=== PATIENT | female | born 1935 | race African-American/Black ===

== ENCOUNTER 2018-03-20 14:44 | Inpatient (IN) | payer MEDICARE ==
[~2018-03-20] VITALS: Ht 149.9 cm; Wt 70.8 kg
[2018-03-20] MEDS ORDERED: Morphine Sulfate 4mg/ml Inj IVP ONE (15:00)
[2018-03-20] MEDS ORDERED: METOPROLOL SUC100 MG ORAL ×2 (15:07→18:07)
[2018-03-20] MEDS ORDERED: RESTORIL15 MG ORAL ×2 (15:07→18:07)
[2018-03-20] MEDS ORDERED: NORCO 5-325 TA1 EACH ORAL (15:07)
[2018-03-20] MEDS ORDERED: AMLODIPINE-VAL1 EACH PO (15:07)
[2018-03-20] MEDS ORDERED: NITROSTAT0.4 M1 SL ×2 (15:07→18:07)
[2018-03-20] MEDS ORDERED: DEXILANT60 MG ORAL ×2 (15:07→18:07)
[2018-03-20] MEDS ORDERED: ZOFRAN4 M3 ORAL ×2 (15:07→18:07)
[2018-03-20] MEDS ORDERED: CATAPRES0.3 MG ORAL (15:07)
--- NOTE | 2018-03-20 15:28 | Emergency Room Report ---
History of Present Illness General Chief Complaint: Abdominal Pain Source: Patient, Medical Record Present Illness HPI Patient was discharged from [facility] after hospitalization. She was given information about pancreatitis. She's complaining about abdominal pain at this time. She states it's suprapubic area. She has vomiting associated with that. She also has an dysuria. She moved her bowels this morning and was normal. She denies vomiting any blood. She states the pain is severe and intermittent. Aching pressure and grabs her. They left an IV in at discharge. She's not sure why. Review the records from [facility] refill she had endoscopy and colonoscopy. Discharge paperwork reveal the GI specialist felt that she had ischemic colitis and was told to take nitroglycerin when she had abdominal pain. Is no mention of pancreatitis. No chest pain, cough, sore throat, rashes, headache, depression. Allergies: Coded Allergies: ASPIRIN (Unverified Allergy, Unknown, 03/20/18) PENICILLINS (Unverified Allergy, Unknown, 03/20/18) TETRACYCLINES (Unverified Allergy, Unknown, 03/20/18) Patient History Past Medical History: see triage record Past Surgical History: other - erika, gastric bypass Social History: Denies: smoking, alcohol use, drug use Social History Narrative from home Last Menstrual Period: na Reviewed Nursing Documentation: PMH: Agreed; PSxH: Agreed Nursing Documentation-PMH Past Medical History: No History, Except For Hx Cardiac Problems: Yes Hx Hypertension: Yes Hx Gastrointestinal Problems: Yes - pancreatitis Review of Systems All Other Systems: negative except mentioned in HPI Physical Exam Vital Signs Date Time Temp Pulse Resp B/P (MAP) Pulse Ox O2 Delivery O2 Flow Rate FiO2 03/20/18 14:37 98.3 90 18 145/82 98 Room Air 98.2 Sp02 EP Interpretation: reviewed, normal General Appearance: well appearing, no apparent distress, GCS 15 Head: normocephalic Eyes: bilateral eye normal inspection, bilateral eye conjunctivae pale ENT: moist mucus membranes Neck: supple Respiratory: lungs clear, normal breath sounds Cardiovascular #1: regular rate, rhythm Cardiovascular #2: 2+ radial (R) Gastrointestinal: normal inspection, normal bowel sounds, no mass, non- distended, no rebound, guarding, tenderness - Suprapubic, overweight Genitourinary: no CVA tenderness Musculoskeletal: back normal, gait/station normal, normal range of motion Neurologic: alert, oriented x3, grossly normal Psychiatric: mood/affect normal Skin: normal inspection, warm/dry Medical Decision Making Diagnostic Impression: Primary Impression: Abdominal pain Qualified Codes: R10.13 - Epigastric pain Additional Impressions: Anemia Qualified Codes: D50.9 - Iron deficiency anemia, unspecified Elevated lipase ER Course The patient presents with abdominal pain post discharged from [facility]. Differential includes UTI, pancreatitis, gastroenteritis, diverticulitis amongst others. She needs reevaluation with EKG, abdominal film and chest x- ray and labs. We'll be treating her with IV hydration and analgesia here. Review of recent admission records reveal upper and lower endoscopy. Final consideration was of ischemic bowel and nitroglycerine was suggested. EKG without injury. Abd with multiple surgical clips. CXR inc cor. Labs with significant anemia, elevated lipase (minimally). Patient insisting on Dilaudid instead of morphine. When I mentioned the severe anemia, she states she refuses transfusion as she is [employer]. Patient improved with treatment. Needs observation and further evaluation of abd pain and anemia. Admit med Dr. Espitia. Laboratory Tests Test 03/20/18 18:25 03/21/18 07:15 03/21/18 12:30 White Blood Count 3.9 K/UL (4.8-10.8) L Red Blood Count 3.03 M/UL (4.20-5.40) L Hemoglobin 7.9 G/DL (12.0-16.0) L Hematocrit 25.5 % (37.0-47.0) L Mean Corpuscular Volume 84 FL (80-99) Mean Corpuscular Hemoglobin 26.0 PG (27.0-31.0) L Mean Corpuscular Hemoglobin Concent 30.9 G/DL (32.0-36.0) L Red Cell Distribution Width 18.9 % (11.6-14.8) H Platelet Count 181 K/UL (150-450) Mean Platelet Volume 5.5 FL (6.5-10.1) L Neutrophils (%) (Auto) % (45.0-75.0) Lymphocytes (%) (Auto) % (20.0-45.0) Monocytes (%) (Auto) % (1.0-10.0) Eosinophils (%) (Auto) % (0.0-3.0) Basophils (%) (Auto) % (0.0-2.0) Differential Total Cells Counted 100 Neutrophils % (Manual) 50 % (45-75) Lymphocytes % (Manual) 38 % (20-45) Monocytes % (Manual) 10 % (1-10) Eosinophils % (Manual) 2 % (0-3) Basophils % (Manual) 0 % (0-2) Band Neutrophils 0 % (0-8) Platelet Estimate Adequate Platelet Morphology Normal Hypochromasia 1+ Prothrombin Time 10.7 SEC (9.30-11.50) Prothrombin Time INR 1.0 (0.9-1.1) PTT 27 SEC (23-33) Sodium Level 141 MMOL/L (136-145) Potassium Level 3.7 MMOL/L (3.5-5.1) Chloride Level 105 MMOL/L (98-107) Carbon Dioxide Level 26 MMOL/L (21-32) Anion Gap 10 mmol/L (5-15) Blood Urea Nitrogen 15 mg/dL (7-18) Creatinine 0.9 MG/DL (0.55-1.30) Estimate Glomerular Filtration Rate mL/min (>60) Glucose Level 98 MG/DL (74-106) Calcium Level 8.6 MG/DL (8.5-10.1) Total Bilirubin 0.4 MG/DL (0.2-1.0) Aspartate Amino Transferase (AST) 21 U/L (15-37) Alanine Aminotransferase (ALT) 21 U/L (12-78) Alkaline Phosphatase 140 U/L (46-116) H Troponin I 0.004 ng/mL (0.000-0.056) Total Protein 7.0 G/DL (6.4-8.2) Albumin 3.4 G/DL (3.4-5.0) Globulin 3.6 g/dL Albumin/Globulin Ratio 0.9 (1.0-2.7) L Lipase 398 U/L (73-393) H 204 U/L (73-393) Iron Level 50 ug/dL (50-175) Total Iron Binding Capacity 336 ug/dL (250-450) Percent Iron Saturation 15 % (15-50) Unsaturated Iron Binding 286 ug/dL (112-346) Urine Color Yellow Urine Appearance Clear Urine pH 6 (4.5-8.0) Urine Specific [place] 1.010 (1.005-1.035) Urine Protein Negative (NEGATIVE) Urine Glucose (UA) Negative (NEGATIVE) Urine Ketones Negative (NEGATIVE) Urine Occult Blood 1+ (NEGATIVE) H Urine Nitrite Negative (NEGATIVE) Urine Bilirubin Negative (NEGATIVE) Urine Urobilinogen Normal MG/DL (0.0-1.0) Urine Leukocyte Esterase 2+ (NEGATIVE) H Urine RBC 2-4 /HPF (0 - 2) H Urine WBC 2-4 /HPF (0 - 2) Urine Squamous Epithelial Cells Occasional /LPF Urine Bacteria Occasional /HPF (NONE) EKG Diagnostic Results Rate: normal Rhythm: NSR ST Segments: no acute changes Rhythm Strip Diag. Results EP Interpretation: yes Rhythm: NSR, no PVC's, no ectopy Chest X-Ray Diagnostic Results Chest X-Ray Diagnostic Results : Chest X-Ray Ordered: Yes # of Views/Limited/Complete: 1 View Indication: Other EP Interpretation: Yes Interpretation: no consolidation, no effusion, no pneumothorax Impression: No acute disease Electronically Signed by: Electronically signed by Malik Zheng MD Other X-Ray Diagnostic Results Other X-Ray Diagnostic Results : X-Ray ordered: Abdomen # of Views/Limited Vs Complete: 1 View Indication: Pain EP Interpretation: Yes Interpretation: nonspecific bowel gas, no sbo, other - Multiple surgical clips Impression: Other Electronically Signed by: Electronically signed by Malik Zheng MD Status: improved Disposition: ADMITTED INPATIENT Condition: Serious Malik Zheng M.D. Mar 20, 2018 15:28
[2018-03-20 16:17] VITALS: BP 113/67
[2018-03-20] MEDS ORDERED: Hydromorphone 0.5mg/0.5ml inj IVP ONE (16:30)
[2018-03-20] MEDS ORDERED: Hydromorphone 0.5mg/0.5ml inj ONE (17:21)
[2018-03-20] MEDS ORDERED: CLONIDINE HCL0.2 MG PO (18:07)
[2018-03-20] MEDS ORDERED: AMLOD-VALSA-HC1 EACH PO (18:07)
[2018-03-20] MEDS ORDERED: NORCO 10-325 T1 EACH ORAL (18:07)
[2018-03-20 18:43] LABS: HEMATOCRIT 25.5 % (37.0-47.0); HEMOGLOBIN 7.9 G/DL (12.0-16.0); MEAN CORPUSCULAR VOLUME 84 FL (80-99); PLATELET COUNT 181 K/UL (150-450); RED BLOOD COUNT 3.03 M/UL (4.20-5.40); RED CELL DISTRIBUTION WIDTH 18.9 % (11.6-14.8); WHITE BLOOD COUNT 3.9 K/UL (4.8-10.8)
[2018-03-20 18:52] LABS: ANION GAP 10 mmol/L (5-15); BLOOD UREA NITROGEN 15 mg/dL (7-18); CALCIUM 8.6 MG/DL (8.5-10.1); CARBON DIOXIDE 26 MMOL/L (21-32); CHLORIDE 105 MMOL/L (98-107); CREATININE 0.9 MG/DL (0.55-1.30); POTASSIUM 3.7 MMOL/L (3.5-5.1); SODIUM 141 MMOL/L (136-145)
[2018-03-20 18:56] LABS: ALANINE AMINOTRANSFERASE 21 U/L (12-78); ALBUMIN 3.4 G/DL (3.4-5.0); ALBUMIN/GLOBULIN RATIO 0.9 (1.0-2.7); ALKALINE PHOSPHATASE 140 U/L (46-116); ASPARTATE AMINO TRANSFERASE 21 U/L (15-37); BILIRUBIN,TOTAL 0.4 MG/DL (0.2-1.0)
[2018-03-20 19:20] VITALS: BP 122/59
[2018-03-20 20:43] VITALS: BP 138/79
[2018-03-20] MEDS ORDERED: Nitroglycerin Subl 0.4mg tab SL PRN (20:45)
[2018-03-20] MEDS ORDERED: HYDROcodone/Acetamin 10/325 tab ORAL PRN (20:45)
[2018-03-20] MEDS ORDERED: Hydromorphone 0.5mg/0.5ml inj IVP PRN (20:45)
[2018-03-20] MEDS: Hydromorphone 0.5mg/0.5ml inj IVP PRN (21:29)
[2018-03-20] MEDS: D5NS 1,000 ML IV SCH (21:30)
[2018-03-20] MEDS ORDERED: cloNIDine 0.2mg Tab ORAL SCH (22:00)
[2018-03-20] MEDS: HYDROcodone/Acetamin 10/325 tab ORAL PRN (23:40)
[2018-03-21] VITALS (7 sets, daily range): BP systolic 70–136; BP diastolic 43–77
[2018-03-21] MEDS ORDERED: Hydromorphone 0.5mg/0.5ml inj IVP PRN (00:45)
[2018-03-21] MEDS: Hydromorphone 0.5mg/0.5ml inj IVP PRN ×5 (01:35→22:02)
[2018-03-21] MEDS ORDERED: NS 250 ML IVPB SCH (04:15)
[2018-03-21] MEDS ORDERED: Sodium Chloride 500ML 500 ML IV ONE (07:00)
[2018-03-21] MEDS: D5NS 1,000 ML IV SCH ×2 (07:55→23:40)
--- NOTE | 2018-03-21 08:20 | General Progress Note ---
Assessment/Plan Problem List: (1) Abdominal pain ICD Codes: R10.9 - Unspecified abdominal pain SNOMED: 21839179 (2) Hypotension ICD Codes: I95.9 - Hypotension, unspecified SNOMED: 97888437 (3) Shock ICD Codes: R57.9 - Shock, unspecified SNOMED: 97654992 (4) Dehydration ICD Codes: E86.0 - Dehydration SNOMED: 37700609 (5) Hypertension ICD Codes: I10 - Essential (primary) hypertension SNOMED: 84948536 Status: stable Assessment/Plan pain rx ivf await CT scan surgery and gi eval Subjective ROS Limited/Unobtainable: No Constitutional: Reports: malaise, weakness HEENT: Reports: no symptoms Cardiovascular: Reports: no symptoms Respiratory: Reports: no symptoms Gastrointestinal/Abdominal: Reports: abdominal pain Genitourinary: Reports: no symptoms Neurologic/Psychiatric: Reports: no symptoms Endocrine: Reports: no symptoms Hematologic/Lymphatic: Reports: no symptoms Allergies: Coded Allergies: ASPIRIN (Unverified Allergy, Unknown, 03/20/18) PENICILLINS (Unverified Allergy, Unknown, 03/20/18) TETRACYCLINES (Unverified Allergy, Unknown, 03/20/18) All Systems: reviewed and negative except above Subjective no events. w/o complaints except continued abd pain. no fever or chills. no sob. no nausea or vomiting. no diarrhea. Objective Last 24 Hour Vital Signs Date Time Temp Pulse Resp B/P (MAP) Pulse Ox O2 Delivery O2 Flow Rate FiO2 03/21/18 04:43 97.3 67 17 70/43 100 97.3 03/21/18 00:13 98.1 83 16 136/77 98 98.1 03/20/18 21:30 138/79 03/20/18 20:43 97.9 86 18 138/79 99 97.9 03/20/18 19:55 98.4 74 19 122/59 98 Room Air 98.4 03/20/18 19:47 98.4 03/20/18 19:20 98.4 74 19 122/59 98 Room Air 98.4 03/20/18 16:17 82 12 113/67 100 Room Air 03/20/18 14:37 98.3 90 18 145/82 98 Room Air 98.2 Intake and Output 03/20/18 03/21/18 19:00 07:00 Intake Total 1425 ml Balance 1425 ml Intake IV Total 1425 ml # Voids 2 Laboratory Tests 03/20/18 18:25: White Blood Count 3.9L, Red Blood Count 3.03L, Hemoglobin 7.9L, Hematocrit 25.5L , Mean Corpuscular Volume 84, Mean Corpuscular Hemoglobin 26.0L, Mean Corpuscular Hemoglobin Concent 30.9L, Red Cell Distribution Width 18.9H, Platelet Count 181, Mean Platelet Volume 5.5L, Neutrophils (%) (Auto) , Lymphocytes (%) (Auto) , Monocytes (%) (Auto) , Eosinophils (%) (Auto) , Basophils (%) (Auto) , Differential Total Cells Counted 100, Neutrophils % ( Manual) 50, Lymphocytes % (Manual) 38, Monocytes % (Manual) 10, Eosinophils % ( Manual) 2, Basophils % (Manual) 0, Band Neutrophils 0, Platelet Estimate Adequate, Platelet Morphology Normal, Hypochromasia 1+, Prothrombin Time 10.7, Prothromb Time International Ratio 1.0, Activated Partial Thromboplast Time 27, Sodium Level 141, Potassium Level 3.7, Chloride Level 105, Carbon Dioxide Level 26, Anion Gap 10, Blood Urea Nitrogen 15, Creatinine 0.9, Estimat Glomerular Filtration Rate , Glucose Level 98, Calcium Level 8.6, Total Bilirubin 0.4, Aspartate Amino Transf (AST/SGOT) 21, Alanine Aminotransferase (ALT/SGPT) 21, Alkaline Phosphatase 140H, Troponin I 0.004, Total Protein 7.0, Albumin 3.4, Globulin 3.6, Albumin/Globulin Ratio 0.9L, Lipase 398H 03/21/18 07:15: Iron Level [Pending], Unsaturated Iron Binding [Pending] Height (Feet): 4 Height (Inches): 11.00 Weight (Pounds): 134 General Appearance: WD/WN, alert Neck: supple Cardiovascular: normal rate Respiratory/Chest: chest wall non-tender, lungs clear, normal breath sounds Abdomen: normal bowel sounds, soft, no organomegaly, no mass, guarding, tender Edema: no edema noted Arm (L), no edema noted Arm (R), no edema noted Leg (L), no edema noted Leg (R), no edema noted Pedal (L), no edema noted Pedal (R), no edema noted Generalized Guanako Espitia MD Mar 21, 2018 08:19
--- NOTE | 2018-03-21 08:31 | History and Physical Report ---
DATE OF ADMISSION: 03/20/2018 CHIEF COMPLAINT: Abdominal pain. HISTORY OF PRESENT ILLNESS: The patient is an 82-year-old female. She has a history of hypertension. She has a questionable history of ischemic colitis. She has had several admissions for evaluation of abdominal pain most recently a week ago at an outside hospital. At that time, she underwent endoscopy, results of which are unclear to the patient. She had worsening abdominal pain and presented to the emergency room. On evaluation there, the patient's initial laboratories were unremarkable, but the pain cannot be controlled despite IV pain medications and she is now admitted for further evaluation and care. She denies any melena. She has had no bright red blood per rectum. No hematemesis. PAST MEDICAL HISTORY: Significant for history of hypertension, morbid obesity, and status post gastric bypass surgery. CURRENT MEDICATIONS: Reconciled and reviewed. ALLERGIES: Include aspirin, penicillin, and tetracycline. FAMILY HISTORY: Noncontributory. SOCIAL HISTORY: Negative for tobacco, ethanol, or drugs. The patient is [employer]. PHYSICAL EXAMINATION: VITAL SIGNS: Temperature is 98 degrees, pulse 74, respirations 19, and blood pressure 122/59. GENERAL: The patient is a well-developed female, in no apparent distress. She is awake, alert, and oriented x4. NECK: Supple. HEART: Regular rate and rhythm. LUNGS: Clear. ABDOMEN: Soft. Mildly distended. The patient has mild tenderness to palpation with some guarding. LABORATORY DATA: Labs showed white count of 4, hemoglobin 7.9, hematocrit 25.5, and platelet count 188,000. Coags normal. Sodium 141 and potassium 3.7. LFTs were unremarkable. Lipase is 398. ASSESSMENT: This is a pleasant female admitted with complaints of abdominal pain, unclear etiology. She does have a slightly elevated lipase. Her pain is much lower though. This is a pleasant female with abdominal pain, possible pancreatitis, questionable ischemic colitis, and hypertension. PLAN: 1. IV hydration. 2. Continue regular diet as tolerated. 3. Antiemetics. 4. IV pain medications. 5. GI consultation. 6. We will check her urinalysis. Guanako Espitia M.D. DR: LATRICE JOB#: [id number] CC:
[2018-03-21 08:57] LABS: % IRON SATURATION 15 % (15-50); IRON 50 ug/dL (50-175); TOTAL IRON BINDING CAPACITY 336 ug/dL (250-450)
[2018-03-21] MEDS ORDERED: Metoprolol Succinate XL 100mg tab ORAL SCH (09:00)
[2018-03-21] MEDS ORDERED: Hyzaar 12.5mg/50mg tab ORAL SCH (09:00)
[2018-03-21] MEDS: Metoprolol Succinate XL 100mg tab ORAL SCH (09:00)
--- NOTE | 2018-03-21 10:12 | General Progress Note ---
Assessment/Plan Assessment/Plan GI CONSULT Dictation to follow Patient unclear of details of illness but has had extensive GI w/u including EGD /Colon She is followed by an outside GI MD - Message left to discuss For now will hydrate and check all stool tests Thank you Monserrat Gutierrez MD Subjective Allergies: Coded Allergies: ASPIRIN (Unverified Allergy, Unknown, 03/20/18) PENICILLINS (Unverified Allergy, Unknown, 03/20/18) TETRACYCLINES (Unverified Allergy, Unknown, 03/20/18) Objective Last 24 Hour Vital Signs Date Time Temp Pulse Resp B/P (MAP) Pulse Ox O2 Delivery O2 Flow Rate FiO2 03/21/18 09:34 97.9 03/21/18 09:30 75 18 115/67 100 Room Air 03/21/18 09:00 65 97/52 03/21/18 09:00 97.9 65 17 97/52 100 Room Air 97.9 03/21/18 04:43 97.3 67 17 70/43 100 97.3 03/21/18 00:13 98.1 83 16 136/77 98 98.1 03/20/18 21:30 138/79 03/20/18 20:43 97.9 86 18 138/79 99 97.9 03/20/18 19:55 98.4 74 19 122/59 98 Room Air 98.4 03/20/18 19:47 98.4 03/20/18 19:20 98.4 74 19 122/59 98 Room Air 98.4 03/20/18 16:17 82 12 113/67 100 Room Air 03/20/18 14:37 98.3 90 18 145/82 98 Room Air 98.2 Intake and Output 03/20/18 03/21/18 19:00 07:00 Intake Total 1425 ml Balance 1425 ml Intake IV Total 1425 ml # Voids 2 Laboratory Tests 03/20/18 18:25: White Blood Count 3.9L, Red Blood Count 3.03L, Hemoglobin 7.9L, Hematocrit 25.5L , Mean Corpuscular Volume 84, Mean Corpuscular Hemoglobin 26.0L, Mean Corpuscular Hemoglobin Concent 30.9L, Red Cell Distribution Width 18.9H, Platelet Count 181, Mean Platelet Volume 5.5L, Neutrophils (%) (Auto) , Lymphocytes (%) (Auto) , Monocytes (%) (Auto) , Eosinophils (%) (Auto) , Basophils (%) (Auto) , Differential Total Cells Counted 100, Neutrophils % ( Manual) 50, Lymphocytes % (Manual) 38, Monocytes % (Manual) 10, Eosinophils % ( Manual) 2, Basophils % (Manual) 0, Band Neutrophils 0, Platelet Estimate Adequate, Platelet Morphology Normal, Hypochromasia 1+, Prothrombin Time 10.7, Prothromb Time International Ratio 1.0, Activated Partial Thromboplast Time 27, Sodium Level 141, Potassium Level 3.7, Chloride Level 105, Carbon Dioxide Level 26, Anion Gap 10, Blood Urea Nitrogen 15, Creatinine 0.9, Estimat Glomerular Filtration Rate , Glucose Level 98, Calcium Level 8.6, Total Bilirubin 0.4, Aspartate Amino Transf (AST/SGOT) 21, Alanine Aminotransferase (ALT/SGPT) 21, Alkaline Phosphatase 140H, Troponin I 0.004, Total Protein 7.0, Albumin 3.4, Globulin 3.6, Albumin/Globulin Ratio 0.9L, Lipase 398H 03/21/18 07:15: Iron Level 50, Total Iron Binding Capacity 336, Percent Iron Saturation 15, Unsaturated Iron Binding 286 Height (Feet): 4 Height (Inches): 11.00 Weight (Pounds): 134 Monserrat Gutierrez MD Mar 21, 2018 10:12
--- NOTE | 2018-03-21 12:00 | Diagnostic Imaging Report ---
Indication: Abdominal pain Technique: Supine view of the abdomen Comparison: none Findings: Rather numerous surgical clips are seen in the region of the gastroesophageal junction, epigastric region, and left lower quadrant. The bowel gas pattern is unremarkable Impression: No acute process
--- NOTE | 2018-03-21 12:01 | Diagnostic Imaging Report ---
Indication: Chest pain Technique: One view of the chest Comparison: None Findings: Lungs and pleural spaces are clear. Heart size is upper limits of normal. The aorta is tortuous Impression: No acute process
[2018-03-21 13:03] LABS: APPEARANCE,URINE CLEAR; BILIRUBIN, URINE NEGATIVE (NEGATIVE); GLUCOSE, URINE (UA) NEGATIVE (NEGATIVE); KETONES,URINE NEGATIVE (NEGATIVE); LEUKOCYTE ESTERASE ,URINE 2+ (NEGATIVE); NITRITE,URINE NEGATIVE (NEGATIVE); PH,URINE 6 (4.5-8.0); PROTEIN,URINE NEGATIVE (NEGATIVE); UROBILINOGEN,URINE NORMAL MG/DL (0.0-1.0)
[2018-03-21 13:13] LABS: COLOR,URINE YELLOW
--- NOTE | 2018-03-21 13:33 | Cardiology Report ---
APPROVED REPORT EKG Measurement Heart [id number] Normal sinus rhythm Minimal voltage criteria for LVH, may be normal variant Borderline ECG
--- NOTE | 2018-03-21 15:02 | Diagnostic Imaging Report ---
Indication: Chest and abdominal pain TECHNIQUE: Patient ingested oral contrast. IV administration nonionic contrast multiphasic spiral acquisitions obtained through the chest, abdomen, and pelvis. Multiplanar reconstructions were generated. Total dose length product 1313 mGycm. CTDIvol(s) 8, 81, 13, 16 mGy. Radiation dose was minimized using automated exposure control COMPARISON: none FINDINGS Chest: The lungs demonstrate posterior dependent atelectatic changes on the right, minimal basilar atelectasis and/or scarring on the left. There is some thickening of the superolateral aspect of the major fissure on the right No infiltrates, effusions, masses, nodules, or congestion The heart is mildly enlarged. No pericardial effusion. No mediastinal or hilar mass or adenopathy. Included portions of the thyroid are unremarkable. There is suggestion of mild wall thickening of the mid esophagus. No axillary or chest wall mass or adenopathy. The bones are unremarkable. Abdomen pelvis: The appendix is normal. No evidence of diverticulosis or diverticulitis. No small bowel distention. There is evidence of prior gastric bypass surgery. There is only limited forward transit of contrast. No free or loculated intraperitoneal air or fluid is evident. There is a tiny right inguinal hernia which contains only fat. The gallbladder is surgically absent. There is dilatation of the extrahepatic bile ducts and of the central intrahepatic bile ducts, common bile duct measuring up to 10 mm in diameter. However, no downstream obstructive lesion is demonstrated. No focal hepatic abnormality is demonstrated. The pancreas is unremarkable except for a mildly ectatic pancreatic duct. Spleen, adrenals are unremarkable. Both kidneys demonstrate subcentimeter low-attenuation lesions which are too small to characterize but most likely represent benign simple cysts. No retroperitoneal or mesenteric mass or adenopathy. No pelvic mass or adenopathy. Uterus is not evident, presumed surgically absent. There are degenerative changes of the lower lumbar spine. IMPRESSION: Mild esophageal wall thickening, could indicate esophagitis changes. Correlate with clinical findings No definite acute process otherwise There is mild cardiomegaly Minimal posterior dependent pulmonary atelectatic changes and scarring.. Evidence of prior gastric bypass surgery Evidence of prior cholecystectomy. Dilatation of the extra hepatic bile ducts and central intrahepatic ducts noted. Likely related to age and postcholecystectomy state. However, occult downstream obstructive lesion cannot be excluded, and correlation with liver function tests is recommended Bilateral subcentimeter low-attenuation renal lesions, too small to characterize, most likely benign simple cyst Other findings as noted, including degenerative spondylosis, evidence of prior hysterectomy, small fat-containing right inguinal hernia The CT scanner at [facility] is accredited by the [employer] and the scans are performed using protocols designed to limit radiation exposure to as low as reasonably achievable to attain images of sufficient resolution adequate for diagnostic evaluation.
[2018-03-21] MEDS ORDERED: D5NS 1000ml IV ONE (15:24)
--- NOTE | 2018-03-21 15:27 | Consultation ---
History of Present Illness General Date patient seen: Mar 21, 2018 Chief Complaint: Abdominal Pain Reason for Consultation: abdominal pain Present Illness HPI 82 year old pleasant female presented to ED with complaints of generalized abdominal pain. states pain intermittent and for some time now. currently pain mainly suprapubic. no current nausea or emesis. was recently discharged from outside facility and only notes diagnosis of pancreatitis? history limited as she is a poor historian. surgery called to evaluate for abdominal pain. states she is passing flatus and small bm's. on admission mild elevation in lipase. pending radiological exams. Allergies: Coded Allergies: ASPIRIN (Unverified Allergy, Unknown, 03/20/18) PENICILLINS (Unverified Allergy, Unknown, 03/20/18) TETRACYCLINES (Unverified Allergy, Unknown, 03/20/18) Medication History Scheduled Amlodipine/Valsartan (Amlodipine-Valsartan 5-160 mg), 1 EACH PO DAILY, (Reported ) Amlodipine/Valsartan/Hcthiazid (Nrnxg-Ukjkj-Qgoi 5-160-12.5 mg), 1 EACH PO DAILY , (Reported) Clonidine Hcl (Clonidine Hcl), 0.2 MG PO THREE TIMES A DAY, (Reported) Clonidine Hcl* (Catapres*), 0.3 MG ORAL Q8HR, (Reported) Dexlansoprazole (Dexilant), 60 MG ORAL DAILY, (Reported) Dexlansoprazole (Dexilant), 60 MG ORAL DAILY, (Reported) Metoprolol Succinate* (Metoprolol Succinate*), 100 MG ORAL DAILY, (Reported) Metoprolol Succinate* (Metoprolol Succinate*), 100 MG ORAL DAILY, (Reported) Scheduled PRN Hydrocodone Bit/Acetaminophen 10-325* ([place] 10-325*), 1 TAB ORAL Q6H PRN for For Pain, (Reported) Hydrocodone Bit/Acetaminophen 5-325* ([place] 5-325*), 1 TAB ORAL Q6H PRN for For Pain, (Reported) Nitroglycerin (Nitrostat), 0.4 MG SL Q5M X3 DOSES PRN for CHEST PAIN, (Reported) Nitroglycerin (Nitrostat), 0.4 MG SL Q5M X3 DOSES PRN for CHEST PAIN, (Reported) Ondansetron* (Zofran*), 4 MG ORAL Q6H PRN for Nausea & Vomiting, (Reported) Ondansetron* (Zofran*), 4 MG ORAL Q6H PRN for Nausea & Vomiting, (Reported) Temazepam* (Restoril*), 15 MG ORAL BEDTIME PRN for Insomnia, (Reported) Temazepam* (Restoril*), 15 MG ORAL BEDTIME PRN for Insomnia, (Reported) Patient History History Provided By: Patient, Medical Record, PMD Healthcare decision maker Resuscitation status Full Code Advanced Directive on File Past Medical/Surgical History Past Medical/Surgical History: (1) Abdominal pain (2) Abdominal pain (3) Dehydration (4) Hypertension (5) Hypotension (6) Shock Review of Systems All Other Systems: negative except mentioned in HPI Physical Exam General Appearance: no apparent distress Lines, tubes and drains: peripheral HEENT: mucous membranes moist Neck: normal inspection Respiratory/Chest: lungs clear, normal breath sounds, no respiratory distress, no accessory muscle use Cardiovascular/Chest: normal rate, regular rhythm Abdomen: normal bowel sounds, non tender, soft, no organomegaly, no mass, distended Extremities: non-tender, normal inspection Skin Exam: normal pigmentation Neurologic: alert, responsive Last 24 Hour Vital Signs Date Time Temp Pulse Resp B/P (MAP) Pulse Ox O2 Delivery O2 Flow Rate FiO2 03/21/18 14:34 97.7 03/21/18 14:04 97.7 03/21/18 12:00 97.7 93 18 119/71 95 Room Air 97.7 03/21/18 09:34 97.9 03/21/18 09:30 75 18 115/67 100 Room Air 03/21/18 09:00 65 97/52 03/21/18 09:00 97.9 65 17 97/52 100 Room Air 97.9 03/21/18 04:43 97.3 67 17 70/43 100 97.3 03/21/18 00:13 98.1 83 16 136/77 98 98.1 03/20/18 21:30 138/79 03/20/18 20:43 97.9 86 18 138/79 99 97.9 03/20/18 19:55 98.4 74 19 122/59 98 Room Air 98.4 03/20/18 19:47 98.4 03/20/18 19:20 98.4 74 19 122/59 98 Room Air 98.4 03/20/18 16:17 82 12 113/67 100 Room Air Intake and Output 03/20/18 03/21/18 19:00 07:00 Intake Total 1425 ml Balance 1425 ml Intake IV Total 1425 ml # Voids 2 Laboratory Tests Test 03/20/18 18:25 03/21/18 07:15 03/21/18 12:30 White Blood Count 3.9 K/UL (4.8-10.8) L Red Blood Count 3.03 M/UL (4.20-5.40) L Hemoglobin 7.9 G/DL (12.0-16.0) L Hematocrit 25.5 % (37.0-47.0) L Mean Corpuscular Volume 84 FL (80-99) Mean Corpuscular Hemoglobin 26.0 PG (27.0-31.0) L Mean Corpuscular Hemoglobin Concent 30.9 G/DL (32.0-36.0) L Red Cell Distribution Width 18.9 % (11.6-14.8) H Platelet Count 181 K/UL (150-450) Mean Platelet Volume 5.5 FL (6.5-10.1) L Neutrophils (%) (Auto) % (45.0-75.0) Lymphocytes (%) (Auto) % (20.0-45.0) Monocytes (%) (Auto) % (1.0-10.0) Eosinophils (%) (Auto) % (0.0-3.0) Basophils (%) (Auto) % (0.0-2.0) Differential Total Cells Counted 100 Neutrophils % (Manual) 50 % (45-75) Lymphocytes % (Manual) 38 % (20-45) Monocytes % (Manual) 10 % (1-10) Eosinophils % (Manual) 2 % (0-3) Basophils % (Manual) 0 % (0-2) Band Neutrophils 0 % (0-8) Platelet Estimate Adequate Platelet Morphology Normal Hypochromasia 1+ Prothrombin Time 10.7 SEC (9.30-11.50) Prothromb Time International Ratio 1.0 (0.9-1.1) Activated Partial Thromboplast Time 27 SEC (23-33) Sodium Level 141 MMOL/L (136-145) Potassium Level 3.7 MMOL/L (3.5-5.1) Chloride Level 105 MMOL/L (98-107) Carbon Dioxide Level 26 MMOL/L (21-32) Anion Gap 10 mmol/L (5-15) Blood Urea Nitrogen 15 mg/dL (7-18) Creatinine 0.9 MG/DL (0.55-1.30) Estimat Glomerular Filtration Rate mL/min (>60) Glucose Level 98 MG/DL (74-106) Calcium Level 8.6 MG/DL (8.5-10.1) Total Bilirubin 0.4 MG/DL (0.2-1.0) Aspartate Amino Transf (AST/SGOT) 21 U/L (15-37) Alanine Aminotransferase (ALT/SGPT) 21 U/L (12-78) Alkaline Phosphatase 140 U/L (46-116) H Troponin I 0.004 ng/mL (0.000-0.056) Total Protein 7.0 G/DL (6.4-8.2) Albumin 3.4 G/DL (3.4-5.0) Globulin 3.6 g/dL Albumin/Globulin Ratio 0.9 (1.0-2.7) L Lipase 398 U/L (73-393) H 204 U/L (73-393) Iron Level 50 ug/dL (50-175) Total Iron Binding Capacity 336 ug/dL (250-450) Percent Iron Saturation 15 % (15-50) Unsaturated Iron Binding 286 ug/dL (112-346) Urine Color Yellow Urine Appearance Clear Urine pH 6 (4.5-8.0) Urine Specific [place] 1.010 (1.005-1.035) Urine Protein Negative (NEGATIVE) Urine Glucose (UA) Negative (NEGATIVE) Urine Ketones Negative (NEGATIVE) Urine Occult Blood 1+ (NEGATIVE) H Urine Nitrite Negative (NEGATIVE) Urine Bilirubin Negative (NEGATIVE) Urine Urobilinogen Normal MG/DL (0.0-1.0) Urine Leukocyte Esterase 2+ (NEGATIVE) H Urine RBC 2-4 /HPF (0 - 2) H Urine WBC 2-4 /HPF (0 - 2) Urine Squamous Epithelial Cells Occasional /LPF Urine Bacteria Occasional /HPF (NONE) Height (Feet): 4 Height (Inches): 11.00 Weight (Pounds): 134 Medications Current Medications Medications (Trade) Dose Ordered Sig/Guevara Route PRN Reason Start Time Stop Time Status Last Admin Dose Admin Acetaminophen/ Hydrocodone Bitart ([place] 10) 1 tab Q6H PRN ORAL Severe Pain (Pain Scale 7-10) 03/20/18 21:30 03/27/18 21:29 03/20/18 23:40 Dextrose/Sodium Chloride 1,000 ml @ 75 mls/hr [id number] IV 03/20/18 21:00 04/19/18 20:59 03/21/18 07:55 Hydromorphone HCl (Dilaudid) 0.5 mg Q4H PRN IVP Breakthrough Pain 03/20/18 21:30 03/27/18 21:29 03/21/18 14:04 Metoprolol Succinate (Toprol XL) 100 mg DAILY ORAL 03/21/18 09:00 04/20/18 08:59 Nitroglycerin (Ntg) 0.4 mg Q5M PRN SL CHEST PAIN 03/20/18 20:45 04/19/18 20:44 Ondansetron HCl (Zofran) 4 mg Q6H PRN IVP Nausea & Vomiting 03/20/18 20:45 04/19/18 20:44 Ondansetron HCl (Zofran) 4 mg Q6H PRN ORAL Nausea & Vomiting 03/20/18 20:45 04/19/18 20:44 Temazepam (Restoril) 15 mg HSPRN PRN ORAL Insomnia 03/20/18 20:45 03/27/18 20:44 Assessment/Plan Problem List: (1) Abdominal pain Assessment & Plan: 82F lower abdominal pain. recently discharged for outside facility after extensive work up for similar complaints. from history had colo/ endoscope. currently stable. -need to obtain outside facility records -ultrasound and CT scan -okay for diet. -trend labs -no acute surgical intervention at this time thank you for this consultation. will follow with recs. ICD Codes: R10.9 - Unspecified abdominal pain SNOMED: 91363262 Qualifiers: Qualified Codes: R10.30 - Lower abdominal pain, unspecified Status: stable GayKobi Mar 21, 2018 15:27
[2018-03-21] MEDS: HYDROcodone/Acetamin 10/325 tab ORAL PRN (23:57)
[2018-03-22] VITALS: BP 112/59
--- NOTE | 2018-03-22 01:45 | Consultation ---
DATE OF CONSULTATION: 03/21/2018 NOTE: CANCELED DICTATION Monserrat Gutierrez M.D. DR: SAUD JOB#: [id number] CC: KUSHAL
[2018-03-22] MEDS: Hydromorphone 0.5mg/0.5ml inj IVP PRN ×5 (02:20→20:54)
[2018-03-22 04:00] VITALS: BP 107/59
[2018-03-22 06:45] LABS: HEMATOCRIT 23.1 % (37.0-47.0); HEMOGLOBIN 7.2 G/DL (12.0-16.0); MEAN CORPUSCULAR VOLUME 86 FL (80-99); PLATELET COUNT 154 K/UL (150-450); RED BLOOD COUNT 2.69 M/UL (4.20-5.40); RED CELL DISTRIBUTION WIDTH 19.3 % (11.6-14.8); WHITE BLOOD COUNT 3.4 K/UL (4.8-10.8)
[2018-03-22 07:15] LABS: ALANINE AMINOTRANSFERASE 21 U/L (12-78); ALBUMIN 2.9 G/DL (3.4-5.0); ALBUMIN/GLOBULIN RATIO 0.9 (1.0-2.7); ALKALINE PHOSPHATASE 121 U/L (46-116); ANION GAP 7 mmol/L (5-15); ASPARTATE AMINO TRANSFERASE 19 U/L (15-37); BILIRUBIN,TOTAL 0.2 MG/DL (0.2-1.0); BLOOD UREA NITROGEN 15 mg/dL (7-18); CALCIUM 7.9 MG/DL (8.5-10.1); CARBON DIOXIDE 25 MMOL/L (21-32); CHLORIDE 109 MMOL/L (98-107); POTASSIUM 4.3 MMOL/L (3.5-5.1); SODIUM 140 MMOL/L (136-145)
[2018-03-22 08:00] VITALS: BP 110/61
--- NOTE | 2018-03-22 09:00 | Diagnostic Imaging Report ---
Indication: Abdominal pain and vomiting Technique: Ramires-scale and duplex images of the upper abdomen were obtained Comparison: Chest abdomen pelvis CT of earlier the same day Findings: Gallbladder is surgically absent. Common bile duct measures 14 mm in diameter. No intrahepatic biliary ductal dilatation. Liver demonstrates normal echogenicity, no focal abnormality. Portal vein and hepatic veins are patent. Pancreas is unremarkable. Spleen is unremarkable. Left kidney measures 10 cm in length. Right kidney measures 11.1 cm length. Both kidneys demonstrate normal echogenicity. There is no hydronephrosis. No focal abnormality . Non-aneurysmal abdominal aorta . Impression: Surgically absent gallbladder. There is extra hepatic biliary ductal dilatation, also described on recent CT scan. Most likely on the basis of senescent change and postcholecystectomy state, but downstream obstructive pathology cannot be completely ruled out. Correlate with liver function tests No other acute or significant abnormality demonstrated
[2018-03-22] MEDS: Metoprolol Succinate XL 100mg tab ORAL SCH (09:07)
--- NOTE | 2018-03-22 09:15 | Consultation ---
DATE OF CONSULTATION: 03/21/2018 GASTROENTEROLOGY CONSULTATION CONSULTING PHYSICIAN: Monserrat Gutierrez M.D. CHIEF COMPLAINT: I was asked to see this patient by Dr. Guanako Espitia for evaluation of chronic abdominal issues. HISTORY OF PRESENT ILLNESS: The patient is an 82-year-old woman, who is somewhat of a poor historian, who comes into the hospital due to abdominal pain. She states that she has had a few months of symptoms, but on this occasion, for about five days she had been worse with abdominal pain, nausea, vomiting, and diarrhea. She states that she had 4 to 5 bowel movements today, which were loose, but without bleeding. She had a recent endoscopy about a week ago at [facility] which, per discussion with the pick pack worker, showed only gastritis in the pyloric region. The colonoscopy was difficult due to poor preparation and could only be completed to the right colon. It showed no obvious lesions. There was an impression of an outside pick pack worker that the patient may have had some degree of ischemic colitis. She was discharged for outpatient followup, perhaps angiogram which has not been done yet. The patient now has a CT scan. The patient was complaining of constipation in the past, but on this occasion, she has slight diarrhea. PAST MEDICAL HISTORY: History of hypertension, morbid obesity, status post gastric bypass surgery, and mild diverticulosis. MEDICATIONS: Metoprolol. FAMILY HISTORY: non contributory SOCIAL HISTORY: The patient is , has 5 children. PHYSICAL EXAMINATION: GENERAL: Elderly woman, seen in her room. HEENT: Normocephalic and atraumatic. Sclerae anicteric. Oropharynx clear. NECK: Supple. CHEST: Clear to auscultation. CARDIAC: Revealed regular rate. ABDOMEN: Soft, obese with good bowel sounds. There is no organomegaly. EXTREMITIES: Revealed no edema. NEUROLOGIC: . Nonfocal. LABORATORY AND DIAGNOSTIC DATA: Laboratory data were noted. ASSESSMENT: This patient presents with abdominal pain, nausea, vomiting, and diarrhea. Most of these symptoms appeared to be significantly better and therefore continued observation will be appropriate. The patient already has had an endoscopy and at least a partial colonoscopy recently. The CT scan, which was done today at [place] was reviewed. It did not show any acute pathology, which could explain the patient's symptoms. Stool cultures have been done and rule out any pathogen is in GI tract, which may have resulted in symptoms. RECOMMENDATIONS: 1. P.o. diet as tolerated. 2. Check stool cultures and parasites. 3. Check iron panel given that she has anemia. 4. Antiemetics. Thank you for asking me to participate in the care of this patient. Monserrat Gutierrez M.D. DR: SAUD JOB#: [id number] CC: KUSHAL
--- NOTE | 2018-03-22 10:04 | General Progress Note ---
Assessment/Plan Problem List: (1) Abdominal pain ICD Codes: R10.9 - Unspecified abdominal pain SNOMED: 12632943 Qualifiers: Qualified Codes: R10.13 - Epigastric pain (2) Hypotension ICD Codes: I95.9 - Hypotension, unspecified SNOMED: 42747494 (3) Shock ICD Codes: R57.9 - Shock, unspecified SNOMED: 22658415 (4) Dehydration ICD Codes: E86.0 - Dehydration SNOMED: 96539458 (5) Hypertension ICD Codes: I10 - Essential (primary) hypertension SNOMED: 85116335 Status: stable, not improved Assessment/Plan pain rx pos epogen and iron added refusing transfusion- pt is jehovah witness heme eval Subjective ROS Limited/Unobtainable: No Constitutional: Reports: weakness HEENT: Reports: no symptoms Cardiovascular: Reports: no symptoms Respiratory: Reports: no symptoms Gastrointestinal/Abdominal: Reports: abdominal pain Genitourinary: Reports: no symptoms Neurologic/Psychiatric: Reports: no symptoms Endocrine: Reports: no symptoms Hematologic/Lymphatic: Reports: anemia Allergies: Coded Allergies: ASPIRIN (Unverified Allergy, Unknown, 03/20/18) PENICILLINS (Unverified Allergy, Unknown, 03/20/18) TETRACYCLINES (Unverified Allergy, Unknown, 03/20/18) All Systems: reviewed and negative except above Subjective continued abd pain. no nausea or vomiting. tolerating diet. anemia worse. lipase normal now. Objective Last 24 Hour Vital Signs Date Time Temp Pulse Resp B/P (MAP) Pulse Ox O2 Delivery O2 Flow Rate FiO2 03/22/18 09:07 77 110/61 03/22/18 08:00 97.7 77 18 110/61 97 Room Air 97.7 03/22/18 04:00 97.6 73 18 107/59 96 Room Air 97.6 03/22/18 00:00 98.4 82 19 112/59 99 Room Air 98.4 03/21/18 21:00 98.6 88 19 112/57 99 Room Air 98.6 03/21/18 18:47 98.2 03/21/18 18:17 98.2 03/21/18 16:00 98.2 70 17 106/55 99 Room Air 98.2 03/21/18 14:04 97.7 03/21/18 12:00 97.7 93 18 119/71 95 Room Air 97.7 Intake and Output 03/21/18 03/22/18 19:00 07:00 Intake Total 1520 ml 1140 ml Output Total 350 ml Balance 1170 ml 1140 ml Intake Oral 120 ml 240 ml IV Total 1400 ml 900 ml Output Urine Total 350 ml # Voids 2 2 Laboratory Tests 03/21/18 12:30: Urine Color Yellow, Urine Appearance Clear, Urine pH 6, Urine Specific [place] 1.010, Urine Protein Negative, Urine Glucose (UA) Negative, Urine Ketones Negative, Urine Occult Blood 1+H, Urine Nitrite Negative, Urine Bilirubin Negative, Urine Urobilinogen Normal, Urine Leukocyte Esterase 2+H, Urine RBC 2- 4H, Urine WBC 2-4, Urine Squamous Epithelial Cells Occasional, Urine Bacteria Occasional 03/22/18 04:50: White Blood Count 3.4L, Red Blood Count 2.69L, Hemoglobin 7.2L, Hematocrit 23.1L , Mean Corpuscular Volume 86, Mean Corpuscular Hemoglobin 26.7L, Mean Corpuscular Hemoglobin Concent 31.0L, Red Cell Distribution Width 19.3H, Platelet Count 154, Mean Platelet Volume 6.1L, Neutrophils (%) (Auto) , Lymphocytes (%) (Auto) , Monocytes (%) (Auto) , Eosinophils (%) (Auto) , Basophils (%) (Auto) , Neutrophils % (Manual) [Pending], Lymphocytes % (Manual) [Pending], Platelet Estimate [Pending], Platelet Morphology [Pending], Erythrocyte Sedimentation Rate 47H, Sodium Level 140, Potassium Level 4.3, Chloride Level 109H, Carbon Dioxide Level 25, Anion Gap 7, Blood Urea Nitrogen 15, Creatinine 1.0, Estimat Glomerular Filtration Rate , Glucose Level 108H, Calcium Level 7.9L, Total Bilirubin 0.2, Aspartate Amino Transf (AST/SGOT) 19, Alanine Aminotransferase (ALT/SGPT) 21, Alkaline Phosphatase 121H, C-Reactive Protein, Quantitative < 0.4, Total Protein 6.2L, Albumin 2.9L, Globulin 3.3, Albumin/Globulin Ratio 0.9L, Lipase 178 Height (Feet): 4 Height (Inches): 11.00 Weight (Pounds): 134 Objective General Appearance: WD/WN, alert Neck: supple Cardiovascular: normal rate Respiratory/Chest: chest wall non-tender, lungs clear, normal breath sounds Abdomen: normal bowel sounds, soft, no organomegaly, no mass, guarding, tender Edema: no edema noted Arm (L), no edema noted Arm (R), no edema noted Leg (L), no edema noted Leg (R), no edema noted Pedal (L), no edema noted Pedal (R), no edema noted Generalized Guanako Espitia MD Mar 22, 2018 10:04
[2018-03-22 12:00] VITALS: BP 123/69
--- NOTE | 2018-03-22 12:29 | General Surgery Progress Note ---
General Surgery-Progress Note Subjective Symptoms: improved, pain same, passing flatus, BM Additional Comments no acute events. doing well. wants to go home soon Objective Last 24 Hour Vital Signs Date Time Temp Pulse Resp B/P (MAP) Pulse Ox O2 Delivery O2 Flow Rate FiO2 03/22/18 11:25 97.7 03/22/18 09:07 77 110/61 03/22/18 08:00 97.7 77 18 110/61 97 Room Air 97.7 03/22/18 04:00 97.6 73 18 107/59 96 Room Air 97.6 03/22/18 00:00 98.4 82 19 112/59 99 Room Air 98.4 03/21/18 21:00 98.6 88 19 112/57 99 Room Air 98.6 03/21/18 18:47 98.2 03/21/18 18:17 98.2 03/21/18 16:00 98.2 70 17 106/55 99 Room Air 98.2 03/21/18 14:04 97.7 I&O Intake and Output 03/21/18 03/22/18 19:00 07:00 Intake Total 1520 ml 1140 ml Output Total 350 ml Balance 1170 ml 1140 ml Intake Oral 120 ml 240 ml IV Total 1400 ml 900 ml Output Urine Total 350 ml # Voids 2 2 Drains: none Cardiovascular: RSR Respiratory: clear Abdomen: soft, flat, non-tender, present bowel sounds Extremities: no edema, no tenderness, no cyanosis Laboratory Tests Test 03/21/18 12:30 03/22/18 04:50 Urine Color Yellow Urine Appearance Clear Urine pH 6 (4.5-8.0) Urine Specific [place] 1.010 (1.005-1.035) Urine Protein Negative (NEGATIVE) Urine Glucose (UA) Negative (NEGATIVE) Urine Ketones Negative (NEGATIVE) Urine Occult Blood 1+ (NEGATIVE) H Urine Nitrite Negative (NEGATIVE) Urine Bilirubin Negative (NEGATIVE) Urine Urobilinogen Normal MG/DL (0.0-1.0) Urine Leukocyte Esterase 2+ (NEGATIVE) H Urine RBC 2-4 /HPF (0 - 2) H Urine WBC 2-4 /HPF (0 - 2) Urine Squamous Epithelial Cells Occasional /LPF Urine Bacteria Occasional /HPF (NONE) White Blood Count 3.4 K/UL (4.8-10.8) L Red Blood Count 2.69 M/UL (4.20-5.40) L Hemoglobin 7.2 G/DL (12.0-16.0) L Hematocrit 23.1 % (37.0-47.0) L Mean Corpuscular Volume 86 FL (80-99) Mean Corpuscular Hemoglobin 26.7 PG (27.0-31.0) L Mean Corpuscular Hemoglobin Concent 31.0 G/DL (32.0-36.0) L Red Cell Distribution Width 19.3 % (11.6-14.8) H Platelet Count 154 K/UL (150-450) Mean Platelet Volume 6.1 FL (6.5-10.1) L Neutrophils (%) (Auto) % (45.0-75.0) Lymphocytes (%) (Auto) % (20.0-45.0) Monocytes (%) (Auto) % (1.0-10.0) Eosinophils (%) (Auto) % (0.0-3.0) Basophils (%) (Auto) % (0.0-2.0) Differential Total Cells Counted 100 Neutrophils % (Manual) 46 % (45-75) Lymphocytes % (Manual) 42 % (20-45) Monocytes % (Manual) 10 % (1-10) Eosinophils % (Manual) 2 % (0-3) Basophils % (Manual) 0 % (0-2) Band Neutrophils 0 % (0-8) Nucleated Red Blood Cells 1 /100 WBC Platelet Estimate Adequate Platelet Morphology Normal Hypochromasia 3+ Anisocytosis 2+ Erythrocyte Sedimentation Rate 47 MM/HR (0-30) H Sodium Level 140 MMOL/L (136-145) Potassium Level 4.3 MMOL/L (3.5-5.1) Chloride Level 109 MMOL/L (98-107) H Carbon Dioxide Level 25 MMOL/L (21-32) Anion Gap 7 mmol/L (5-15) Blood Urea Nitrogen 15 mg/dL (7-18) Creatinine 1.0 MG/DL (0.55-1.30) Estimat Glomerular Filtration Rate mL/min (>60) Glucose Level 108 MG/DL (74-106) H Calcium Level 7.9 MG/DL (8.5-10.1) L Total Bilirubin 0.2 MG/DL (0.2-1.0) Aspartate Amino Transf (AST/SGOT) 19 U/L (15-37) Alanine Aminotransferase (ALT/SGPT) 21 U/L (12-78) Alkaline Phosphatase 121 U/L (46-116) H C-Reactive Protein, Quantitative < 0.4 mg/dL (0.00-0.90) Total Protein 6.2 G/DL (6.4-8.2) L Albumin 2.9 G/DL (3.4-5.0) L Globulin 3.3 g/dL Albumin/Globulin Ratio 0.9 (1.0-2.7) L Lipase 178 U/L (73-393) Plan Problems: (1) Abdominal pain Assessment & Plan: 82F lower abdominal pain. recently discharged for outside facility after extensive work up for similar complaints. from history had colo/ endoscope. currently stable. Ultrasound and CT without acute findings. Exam benign Labs improved. lipase normal -need to obtain outside facility records -okay for diet. -no acute surgical intervention at this time -Okay to D/C from surgical standpoint thank you for this consultation. will follow with recs. Kobi Rashid Mar 22, 2018 12:29
[2018-03-22] MEDS: D5NS 1,000 ML IV SCH (12:45)
[2018-03-22 16:00] VITALS: BP 120/72
--- NOTE | 2018-03-22 18:52 | General Progress Note ---
Assessment/Plan Assessment/Plan Assessment - resolved GI symptoms - negative recent GI w/u at outside hospital - Anemia, ? etiology (normal Fe panel) Recommendations - check stool OB - po as tolerated - follow CBC - advised to f/u with prior GI MD as outpt Subjective Allergies: Coded Allergies: ASPIRIN (Unverified Allergy, Unknown, 03/20/18) PENICILLINS (Unverified Allergy, Unknown, 03/20/18) TETRACYCLINES (Unverified Allergy, Unknown, 03/20/18) Subjective Above noted feels better no vomiting Tolerating PO D/w prior GI MD ( Dr. Arriola) - patient has had recent EGD/Colon which were unrevealing Objective Last 24 Hour Vital Signs Date Time Temp Pulse Resp B/P (MAP) Pulse Ox O2 Delivery O2 Flow Rate FiO2 03/22/18 17:12 98.0 03/22/18 16:42 98.0 03/22/18 16:00 98.0 91 18 120/72 99 Room Air 98.0 03/22/18 12:00 97.7 89 18 123/69 100 Room Air 97.7 03/22/18 11:25 97.7 03/22/18 09:07 77 110/61 03/22/18 08:00 97.7 77 18 110/61 97 Room Air 97.7 03/22/18 04:00 97.6 73 18 107/59 96 Room Air 97.6 03/22/18 00:00 98.4 82 19 112/59 99 Room Air 98.4 03/21/18 21:00 98.6 88 19 112/57 99 Room Air 98.6 Intake and Output 03/21/18 03/22/18 19:00 07:00 Intake Total 1520 ml 1140 ml Output Total 350 ml Balance 1170 ml 1140 ml Intake Oral 120 ml 240 ml IV Total 1400 ml 900 ml Output Urine Total 350 ml # Voids 2 2 Laboratory Tests 03/22/18 04:50: White Blood Count 3.4L, Red Blood Count 2.69L, Hemoglobin 7.2L, Hematocrit 23.1L , Mean Corpuscular Volume 86, Mean Corpuscular Hemoglobin 26.7L, Mean Corpuscular Hemoglobin Concent 31.0L, Red Cell Distribution Width 19.3H, Platelet Count 154, Mean Platelet Volume 6.1L, Neutrophils (%) (Auto) , Lymphocytes (%) (Auto) , Monocytes (%) (Auto) , Eosinophils (%) (Auto) , Basophils (%) (Auto) , Differential Total Cells Counted 100, Neutrophils % ( Manual) 46, Lymphocytes % (Manual) 42, Monocytes % (Manual) 10, Eosinophils % ( Manual) 2, Basophils % (Manual) 0, Band Neutrophils 0, Nucleated Red Blood Cells 1, Platelet Estimate Adequate, Platelet Morphology Normal, Hypochromasia 3 +, Anisocytosis 2+, Erythrocyte Sedimentation Rate 47H, Sodium Level 140, Potassium Level 4.3, Chloride Level 109H, Carbon Dioxide Level 25, Anion Gap 7, Blood Urea Nitrogen 15, Creatinine 1.0, Estimat Glomerular Filtration Rate , Glucose Level 108H, Calcium Level 7.9L, Total Bilirubin 0.2, Aspartate Amino Transf (AST/SGOT) 19, Alanine Aminotransferase (ALT/SGPT) 21, Alkaline Phosphatase 121H, C-Reactive Protein, Quantitative < 0.4, Total Protein 6.2L, Albumin 2.9L, Globulin 3.3, Albumin/Globulin Ratio 0.9L, Lipase 178 Height (Feet): 4 Height (Inches): 11.00 Weight (Pounds): 134 Objective WDWN NCAT supple CTA RRR Soft NT ND no edema Monserrat Gutierrez MD Mar 22, 2018 18:52
[2018-03-22 20:07] VITALS: BP 110/54
[2018-03-22] MEDS ORDERED: Iron Sucrose 100 MG in NS 55 ML IV SCH (21:00)
[2018-03-23 00:01] VITALS: BP 116/66
[2018-03-23] MEDS: Hydromorphone 0.5mg/0.5ml inj IVP PRN (02:16)
[2018-03-23] MEDS: D5NS 1,000 ML IV SCH (02:19)
[2018-03-23 04:18] VITALS: BP 108/59
[2018-03-23 08:00] VITALS: BP 143/70
[2018-03-23] MEDS: Metoprolol Succinate XL 100mg tab ORAL SCH (08:29)
[2018-03-23] MEDS: HYDROcodone/Acetamin 10/325 tab ORAL PRN ×2 (08:31→14:14)
[2018-03-23 10:30] LABS: BASOPHILS % (AUTO) 1.5 % (0.0-2.0); EOSINOPHILS % (AUTO) 1.1 % (0.0-3.0); HEMATOCRIT 29.3 % (37.0-47.0); HEMOGLOBIN 8.7 G/DL (12.0-16.0); LYMPHOCYTES % (AUTO) 13.1 % (20.0-45.0); MEAN CORPUSCULAR VOLUME 87 FL (80-99); MONOCYTES % (AUTO) 9.6 % (1.0-10.0); NEUTROPHILS % (AUTO) 74.7 % (45.0-75.0); PLATELET COUNT 176 K/UL (150-450); RED BLOOD COUNT 3.36 M/UL (4.20-5.40); RED CELL DISTRIBUTION WIDTH 19.6 % (11.6-14.8); WHITE BLOOD COUNT 4.3 K/UL (4.8-10.8)
[2018-03-23 11:34] VITALS: BP 136/79
[2018-03-23] MEDS ORDERED: D5NS 1000ml IV ONE (15:53)
[2018-03-23] MEDS ORDERED: D5 1/2NS 1000ml IV ONE (15:53)
[2018-03-23] MEDS ORDERED: Tubing IV Secondary IV ONE (15:53)
--- NOTE | 2018-03-23 17:05 | General Surgery Progress Note ---
General Surgery-Progress Note Subjective Symptoms: improved, tolerating diet, passing flatus, BM Objective Last 24 Hour Vital Signs Date Time Temp Pulse Resp B/P (MAP) Pulse Ox O2 Delivery O2 Flow Rate FiO2 03/23/18 14:14 97.3 03/23/18 11:34 97.3 73 18 136/79 96 97.3 03/23/18 09:30 97.3 03/23/18 08:31 98.7 03/23/18 08:29 83 143/70 03/23/18 08:00 98.6 83 18 143/70 96 98.6 83 03/23/18 04:18 98.7 68 17 108/59 97 98.7 03/23/18 00:01 98.6 73 18 116/66 97 98.6 03/22/18 20:07 98.8 97 18 110/54 97 98.8 03/22/18 17:12 98.0 I&O Intake and Output 03/22/18 03/23/18 19:00 07:00 Intake Total 1720 ml 1230 ml Balance 1720 ml 1230 ml Intake Oral 820 ml 240 ml IV Total 900 ml 990 ml # Voids 5 3 # Bowel Movements 1 1 Drains: none Cardiovascular: RSR Respiratory: clear Abdomen: soft, flat, non-tender, present bowel sounds Extremities: no edema, no tenderness, no cyanosis Laboratory Tests Test 03/22/18 20:54 03/23/18 10:15 Stool Occult Blood Negative (NEGATIVE) White Blood Count 4.3 K/UL (4.8-10.8) L Red Blood Count 3.36 M/UL (4.20-5.40) L Hemoglobin 8.7 G/DL (12.0-16.0) L Hematocrit 29.3 % (37.0-47.0) L Mean Corpuscular Volume 87 FL (80-99) Mean Corpuscular Hemoglobin 25.9 PG (27.0-31.0) L Mean Corpuscular Hemoglobin Concent 29.7 G/DL (32.0-36.0) L Red Cell Distribution Width 19.6 % (11.6-14.8) H Platelet Count 176 K/UL (150-450) Mean Platelet Volume 6.3 FL (6.5-10.1) L Neutrophils (%) (Auto) 74.7 % (45.0-75.0) Lymphocytes (%) (Auto) 13.1 % (20.0-45.0) L Monocytes (%) (Auto) 9.6 % (1.0-10.0) Eosinophils (%) (Auto) 1.1 % (0.0-3.0) Basophils (%) (Auto) 1.5 % (0.0-2.0) Plan Problems: (1) Abdominal pain Assessment & Plan: 82F lower abdominal pain. recently discharged for outside facility after extensive work up for similar complaints. from history had colo/ endoscope. currently stable. Ultrasound and CT without acute findings. Exam benign Labs improved. lipase normal -okay for diet. -no acute surgical intervention at this time -Okay to D/C from surgical standpoint thank you for this consultation. will follow with recs. Kobi Rashid Mar 23, 2018 17:05
[2018-03-23] MEDS ORDERED: Epogen (for non ESRD use) SUBQ SCH (21:00)
--- NOTE | 2018-03-24 13:07 | Discharge Summary ---
Discharge Summary Discharge Summary _ DATE OF ADMISSION: 03/20/2018 DATE OF DISCHARGE: 03/23/2018 REASON FOR ADMISSION: 82 years old female with past medical history of hypertension , morbid obesity, status post gastric bypass surgery ,questionable history of ischemic colitis, had several admission for evaluation of abdominal pain, most recent a week ago at the outside hospital. At that time she underwent endoscopy . Patient was unaware of endoscopy results. Patient had worsening abdominal pain and presented to emergency room for evaluation. She denied melena. She e denied bright red blood per rectum , no hematemesis. Upon evaluation, LFT unremarkable. Lipase 398. Stable electrolytes and renal parameters ; hemoglobin 7.9, hematocrit 25.5, leukopenia with WBC 3.9 , troponin negative. Chest x-ray revealed no acute cardiopulmonary pathology ,abdominal x-ray was negative . EKG revealed normal sinus rhythm, no acute ischemic changes. However the pain could not be controlled despite IV analgesics, and patient was admitted for further evaluation and management. Patient admitted with abdominal pain of unclear etiology ,slightly elevated lipase ,anemia ,possible pancreatitis ,questionable ischemic colitis, hypertension. CONSULTANTS: GI specialist Dr. Gutierrez surgery Dr. Rashid [facility] COURSE: Patient admitted to medical surgical floor and started on the IV hydration. Patient started on diet as tolerated , antiemetics were on board as needed. Pain management was addressed . GI consult was requested. Urinalysis revealed no evidence of urinary tract infection. Abdominal ultrasound revealed no acute significant abnormality. Surgically absent gallbladder was noted. Pancreas was unremarkable. CT of the abdomen and pelvis revealed no definite acute process. Evidence of prior gastric bypass surgery. Evidence of prior cholecystectomy. Stool for occult blood was negative . Anemia workup revealed stable iron. Patient was on Epogen and iron supplement, hemoglobin and hematocrit of prior to discharge 8.7 and 29.3 respectively. Per GI specialist conversation with outpatient facility , negative recent GI workup at outside facility. GI symptoms resolved. GI specialist recommended to follow-up with prior GI medical doctor as outpatient. Surgeon closely followed. Imaging revealed no acute findings. Abdominal exam was benign. Lipase down to normal 178. Patient was able to tolerate diet. NO emesis. Patient symptomatically improved . Per surgeon no acute surgical intervention necessary at this time ,continue symptomatic treatment. Surgeon cleared for discharge. Blood pressure was managed with beta ronna and remained stable. Patient was on Epogen and iron supplement. Hemoglobin and hematocrit were closely monitored with goal to keep hemoglobin above 7. Patient was stable for discharge home with outpatient follow-up with the primary care provider and the prior GI specialist. FINAL DIAGNOSES: abdominal pain-resolved anemia hypertension possible pancreatitis questionable history of ischemic colitis DISCHARGE MEDICATIONS: See Medication Reconciliation list. DISCHARGE INSTRUCTIONS: Patient was discharged home. Follow up with the family care provider and GI as outpatient I have been assigned to dictate discharge summary for this account. I was not involved in the patient's management. Vidhya Long NP Mar 24, 2018 13:07
== END 2018-03-23 15:54 | disposition home or self-care (01) | DRG 391 ==
LOC: EDBD 14:44 → EMR 15:53 → EDUNIT# 15:53 → 3E 15:54 → EDBEDREQ 16:56
DX: R10.9 Unspecified abdominal pain (principal); K85.90 Acute pancreatitis without necrosis or infection, unspecified; R57.9 Shock, unspecified; Z88.6 Allergy status to analgesic agent; Z88.0 Allergy status to penicillin; Z88.8 Allergy status to other drugs, medicaments and biological substances; I10 Essential (primary) hypertension; Z98.84 Bariatric surgery status; D64.9 Anemia, unspecified; E86.0 Dehydration
CPT/HCPCS: 36415; 71045; 71260; 74018; 74177; 76700; 80053; 81003; 82270; 83540; 83550; 83690; 84484; 85007; 85025; 85610; 85651; 85730; 86140; 87045; 87081; 87324; 93005; 99285; J2405